=== PATIENT | male | born 1965 | race Two or more races ===

== ENCOUNTER 2021-02-26 10:05 | Inpatient (IN) | payer OTHER ==
[~2021-02-26 10:05] MED LIST: ALTACE2.5 MG PO
== END 2021-02-27 08:24 | disposition home or self-care (01) | DRG 714 ==
LOC: CIR.AMB 10:05 → O/R 14:33 → MEDJ 20:20
PROVIDERS: ADMIT Urology; ATTEND Urology
PROC: 0VB08ZZ Excision of Prostate, Via Natural or Artificial Opening Endoscopic (ICD-10-PCS; principal; 2021-02-26 13:00)
DX: N40.1 Benign prostatic hyperplasia with lower urinary tract symptoms (principal); R33.8 Other retention of urine